=== PATIENT | female | born 1965 | race Caucasian/White ===

== ENCOUNTER 2019-07-26 09:55 | Emergency (ER) | payer OTHER ==
[~2019-07-26] VITALS: Ht 165.1 cm; Wt 102.1 kg
[2019-07-26] MEDS ORDERED: LOSARTAN-HCTZ1 EAC1 (10:07)
== END 2019-07-26 15:27 | disposition home or self-care (01) ==
LOC: ER 09:55
DX: J11.1 Influenza due to unidentified influenza virus with other respiratory manifestations (principal); K52.89 Other specified noninfective gastroenteritis and colitis

== ENCOUNTER 2021-05-15 20:25 | Emergency (ER) | payer OTHER ==
[~2021-05-15] VITALS: Ht 165.1 cm; Wt 111.1 kg
[~2021-05-15 20:25] MED LIST: LOSARTAN-HCTZ1 EAC1
[2021-05-15] MEDS ORDERED: CRESTOR10 MG (20:44)
[2021-05-15] MEDS ORDERED: DAFLONEX-XL 11300 MG (20:44)
[2021-05-15] MEDS ORDERED: KETO10TA2 PO (22:37)
== END 2021-05-15 22:58 | disposition home or self-care (01) ==
LOC: ER 20:25
DX: M79.645 Pain in left finger(s) (principal); S63.105A Unspecified dislocation of left thumb, initial encounter; W18.39XA Other fall on same level, initial encounter; Y93.89 Activity, other specified; Y92.480 Sidewalk as the place of occurrence of the external cause

== ENCOUNTER → 2021-07-06 | Emergency (ER) | payer OTHER ==
[~2021-07-06] VITALS: Ht 165.1 cm; Wt 113.4 kg
[~2021-07-06] MED LIST changes: +CRESTOR10 MG; +DAFLONEX-XL 11300 MG; +KETO10TA2 PO
== END | disposition home or self-care (01) ==
LOC: ER 18:49
DX: L30.8 Other specified dermatitis (principal)

== ENCOUNTER 2022-02-14 17:12 | Emergency (ER) | payer OTHER ==
[~2022-02-14] VITALS: Ht 165.1 cm; Wt 118.8 kg
== END 2022-02-14 23:32 | disposition home or self-care (01) ==
LOC: ER 17:12
DX: M54.50 Low back pain, unspecified (principal); N20.0 Calculus of kidney; M25.561 Pain in right knee

== ENCOUNTER 2022-04-03 05:15 | Day surgery (SDC) | payer OTHER ==
[~2022-04-03] VITALS: Ht 165.1 cm; Wt 116.6 kg
== END 2022-04-03 14:55 | disposition home or self-care (01) ==
LOC: CIR.AMB 05:15
PROVIDERS: ATTEND Obstetrics & Gynecology
DX: C54.1 Malignant neoplasm of endometrium (principal); E66.09 Other obesity due to excess calories; I10 Essential (primary) hypertension; Z20.822 Contact with and (suspected) exposure to COVID-19; E11.9 Type 2 diabetes mellitus without complications; I87.2 Venous insufficiency (chronic) (peripheral)

== ENCOUNTER 2022-04-13 10:15 | Outpatient (CLI) | payer OTHER | END 2022-04-13 10:27 | disposition home or self-care (01) | LOC: RAD 10:15 | PROVIDERS: ATTEND Orthopaedic Surgery | DX: M25.561 Pain in right knee (principal) ==

== ENCOUNTER 2023-09-09 18:47 | Emergency (ER) | payer OTHER ==
[~2023-09-09] VITALS: Ht 165.1 cm; Wt 114.8 kg
[2023-09-09] MEDS ORDERED: KETOROLAC TROMETHAMINE 60 MG VIAL IM STA (22:01)
[2023-09-09] MEDS ORDERED: CLINDAMYCIN PHOSPHATE 150 MG/ML (600mg) IM STA (22:01)
== END 2023-09-09 22:35 | disposition home or self-care (01) ==
LOC: ER 18:47
DX: K03.81 Cracked tooth (principal); L03.818 Cellulitis of other sites

== ENCOUNTER 2024-08-04 19:43 | Emergency (ER) | payer OTHER ==
[~2024-08-04] VITALS: Ht 165.1 cm; Wt 117.9 kg
[2024-08-05 00:09] LABS: HEMATOCRIT 36.4 % (36.0-45.00); MEAN CELL VOLUME 91.8 fL (80.00-100.00); MEAN CORPUSCULAR HEMOGLOBIN 30.4 pg (27.00-32.0); MEAN CORPUSCULAR HGB CONC 33.1 g/dl (32.0-36.0); PLATELET COUNT 193 K/uL (150-450); RED BLOOD COUNT 3.96 M/uL (4.00-6.00)
[2024-08-05 00:23] LABS: CALCIUM 8.8 mg/dL (8.5-10.1); CREATININE SERUM 0.76 mg/dL (0.55-1.02); GFR 77.37; POTASSIUM 3.96 mEq/L (3.5-5.1)
[2024-08-05 00:46] LABS: CALCIUM 8.9 mg/dL (8.5-10.1); CREATININE SERUM 0.73 mg/dL (0.55-1.02); GFR 81.05; POTASSIUM 3.82 mEq/L (3.5-5.1)
[2024-08-05] MEDS ORDERED: RIVAROXABAN 20 MG TABLET PO STA (02:48)
[2024-08-05 06:58] LABS: ABG pCO2 43.3 mmHg (35-45); BASE EXCESS 1.8 mmol/l; BICARBONATE 26.8 mmol/l (23-25); SaO2 96.9 %; Tco2 28.1 mmol/l; allen test SATISFACTORY; o2 21 %; puncture site RADIAL LEFT
== END 2024-08-05 03:41 | disposition home or self-care (01) ==
LOC: ER 19:45
PROVIDERS: General Practice
DX: I73.9 Peripheral vascular disease, unspecified (principal); G47.30 Sleep apnea, unspecified; E66.9 Obesity, unspecified; I10 Essential (primary) hypertension; E11.9 Type 2 diabetes mellitus without complications

== ENCOUNTER 2024-08-05 09:07 | Emergency (ER) | payer OTHER ==
[~2024-08-05] VITALS: Ht 165.1 cm; Wt 117.9 kg
[2024-08-05 10:33] LABS: HEMATOCRIT 35.2 % (36.0-45.00); HEMOGLOBIN 11.8 g/dL (12.0-15.00); MEAN CORPUSCULAR HEMOGLOBIN 30.6 pg (27.00-32.0); MEAN CORPUSCULAR HGB CONC 33.6 g/dl (32.0-36.0); PLATELET COUNT 186 K/uL (150-450); RED BLOOD COUNT 3.87 M/uL (4.00-6.00); RED CELL DISTRIBUTION WIDTH 14.1 % (11.5-14.5)
[2024-08-05 11:16] LABS: CALCIUM 8.8 mg/dL (8.5-10.1); CREATININE SERUM 0.68 mg/dL (0.55-1.02); GFR 87.96; POTASSIUM 3.92 mEq/L (3.5-5.1)
== END 2024-08-05 14:35 | disposition home or self-care (01) ==
LOC: ER 09:09
PROVIDERS: Emergency Medicine
DX: R60.0 Localized edema (principal); I10 Essential (primary) hypertension

== ENCOUNTER 2025-04-08 18:34 | Emergency (ER) | payer OTHER ==
[~2025-04-08] VITALS: Ht 165.1 cm; Wt 105.2 kg
[2025-04-08 18:53] VITALS: BP 139/64; O2SAT 98
[2025-04-08 20:34] LABS: BASO % 0.5 % (0.1-1.2); EOS # 0.30 (0.04-0.54); EOS % 4.8 % (0.7-7.0); LYMPH # 2.23 (1.18-3.74); LYMPH % 35.7 % (19.3-53.1); MEAN PLATELET VOLUME 10.30 fl (9.4-12.4); MONO # 0.90 (0.24-0.82); NEUT # 2.78 (1.56-6.13); NEUT % 44.4 % (34.0-71.1); RED CELL DISTRIBUTION WIDTH 12.3 % (11.6-14.4)
[2025-04-08 20:37] LABS: MONO % 14.4 % (4.7-12.5)
[2025-04-08 20:44] LABS: ERYTHROCYTE SEDIMENTATION RATE 19 mm/hr (0-30)
[2025-04-08 21:29] LABS: ALT/SGPT 36 U/L (12-78); AST/SGOT 19 U/L (15-37); BILIRUBIN TOTAL 0.41 mg/dL (0.3-1.2); BUN CREA RATIO 23 (7.0-25.0); CREATININE SERUM 0.71 mg/dL (0.55-1.02); GFR 83.69; GLOBULINA 3.3 G/DL (2.4-3.5); GLUCOSE FASTING 89 mg/dL (65-100); OSMOLALITY SERUM 286 MOSM/KG (275-295)
== END 2025-04-08 22:23 | disposition home or self-care (01) ==
LOC: ER 18:34
PROVIDERS: General Practice
DX: R21 Rash and other nonspecific skin eruption (principal)